=== PATIENT | male | born 1985 | race Two or more races ===

== ENCOUNTER 2021-12-26 06:33 | Outpatient (CLI) | payer OTHER ==
[~2021-12-26 06:33] MED LIST: NO TOMA.
== END 2021-12-26 06:34 | disposition home or self-care (01) ==
LOC: LAB 06:33
PROVIDERS: ATTEND Obstetrics & Gynecology
DX: Z20.828 Contact with and (suspected) exposure to other viral communicable diseases (principal); Z20.818 Contact with and (suspected) exposure to other bacterial communicable diseases